=== PATIENT | female | born 1995 | race Caucasian/White ===

== ENCOUNTER 2022-06-15 10:15 | Emergency (ER) | payer MEDICAID ==
[~2022-06-15] VITALS: Ht 165.1 cm; Wt 63.6 kg
[2022-06-15 10:44] LABS: BASOPHILS % 0.4 % (0.0-2.0); EOSINOPHILS % 2.5 % (0.0-5.0); HEMATOCRIT. 33.2 % (36.0-48.0); LYMPHOCYTES % 10.3 % (20.0-50.0); MEAN CORPUSCULAR HEMOGLOBIN 20.2 pg (28.0-32.0); MEAN CORPUSCULAR VOLUME 66.6 fL (81.0-99.0); MONOCYTES % 4.8 % (2.0-8.0); PLATELET 353 x1000/uL (130-400); RED BLOOD CELL COUNT 4.99 mill/uL (4.2-5.4); RED CELL DISTRIBUTION WIDTH 17.2 % (11.6-14.6)
[2022-06-15 10:53] LABS: CLARITY URINE CLEAR (CLEAR); COLOR URINE YELLOW (YELLOW); KETONES URINE NEGATIVE (NEGATIVE); LEUKOCYTE ESTERASE URINE NEGATIVE (NEGATIVE); NITRITE URINE NEGATIVE (NEGATIVE); OCCULT BLOOD URINE NEGATIVE (NEGATIVE); PROTEIN URINE NEGATIVE (NEGATIVE); SPECIFIC GRAVITY URINE 1.019 (1.005-1.030); UROBILINOGEN URINE 0.2 E.U./dL (0.2-1.0)
[2022-06-15 10:55] LABS: CHLORIDE 104 mEq/L (98-107)
[2022-06-15 11:04] LABS: HCG SCREEN NEGATIVE
[2022-06-15 11:09] LABS: ETHANOL BLOOD < 10 mg/dL
[2022-06-15 11:12] LABS: *AMPHETAMINES SCREEN URINE NEGATIVE (NEGATIVE); *BARBITURATES SCREEN URINE NEGATIVE (NEGATIVE); *BENZODIAZEPINES SCREEN URINE NEGATIVE (NEGATIVE); *COCAINE SCREEN URINE NEGATIVE (NEGATIVE); CANNABINOID URINE SCREEN NEGATIVE (NEGATIVE); METHADONE URINE SCREEN NEGATIVE (NEGATIVE); OPIATES URINE SCREEN NEGATIVE (NEGATIVE); PHENCYCLIDINE URINE SCREEN NEGATIVE (NEGATIVE)
[2022-06-15 12:58] LABS: PLATELET ESTIMATE NORMAL
[2022-06-15] MEDS ORDERED: MORPHINE SULFATE 4 MG/ML CPJ (NOT FOR IM USE) IV ONE (13:45)
[2022-06-15] MEDS ORDERED: ACETAMINOPHEN 325MG TABLET PO ONE (16:45)
[2022-06-15] MEDS ORDERED: SODIUM CHLORIDE 0.9% 1,000 ML IV ONE (17:15)
[2022-06-15] MEDS ORDERED: NIRM1TAB PO (19:26)
[2022-06-15 19:46] VITALS: BP 114/61
[2022-06-15] MEDS ORDERED: IOHEXOL-350 100 ML BOTTLE ONE (23:10)
== END 2022-06-15 19:48 | disposition home or self-care (01) ==
LOC: ER 10:15
DX: U07.1 COVID-19 (principal); R41.82 Altered mental status, unspecified; I49.9 Cardiac arrhythmia, unspecified; Z98.890 Other specified postprocedural states
CPT/HCPCS: 36415; 70450; 71045; 71275; 80053; 80305; 80307; 80320; 80329; 81003; 82140; 82962; 84443; 84484; 84703; 85025; 85379; 86850; 86900; 86901; 87426; 93005; 96361; 96374; 99285; C9803; J2270; J7030; Q9967; G0480